=== PATIENT | male | born 1975 | race Caucasian/White ===

== ENCOUNTER 2019-02-23 08:06 | Emergency (ER) | payer OTHER ==
[2019-02-23] MEDS ORDERED: LIDOCAINE 5% TOPICAL PATCH TP ONE (08:55)
[2019-02-23] MEDS ORDERED: ORPHENADRINE CITRATE 30 MG/ML ML ONE (08:55)
== END 2019-02-23 09:24 | disposition home or self-care (01) ==
LOC: EDH 08:06
DX: M62.830 Muscle spasm of back (principal); M25.511 Pain in right shoulder
CPT/HCPCS: 96372; 99283; J2360

== ENCOUNTER 2019-04-08 08:03 | Emergency (ER) | payer OTHER ==
[2019-04-08] MEDS ORDERED: ASPIRIN 325 MG TABLET ONE (08:09)
[2019-04-08 08:29] LABS: BASOPHILS % (AUTO) 0.8 % (0.0-5.0); CREATININE 1.1 mg/dL (0.5-1.5); HEMATOCRIT 43.3 % (42-54); LYMPHOCYTES % (AUTO) 28.8 % (21.0-51.0); MEAN CORPUSCULAR HEMOGLOBIN 32.7 pg (27.0-33.0); MEAN CORPUSCULAR HGB CONC 35.2 g/dL (32.0-36.0); MONOCYTES % (AUTO) 6.3 % (3.0-13.0); NEUTROPHILS % (AUTO) 62.1 % (40.0-77.0); PLATELET COUNT (AUTO) 209 K/uL (130-400); POTASSIUM 4.6 mmol/L (3.5-5.1); RED BLOOD CELL COUNT(AUTO) 4.66 MIL/uL (4.50-6.20); RED CELL DISTRIBUTION WIDTH 12.7 % (11.0-15.5); WHITE BLOOD COUNT (AUTO) 6.1 K/uL (4.8-10.8)
[2019-04-08 08:35] LABS: ALBUMIN 4.2 g/dL (3.5-5.0); BILIRUBIN,TOTAL 0.3 mg/dL (0.2-1.0); TOTAL PROTEIN, SERUM 7.2 g/dL (6.0-8.3)
[2019-04-08 08:37] LABS: INR 0.91 (0.85-1.15); PROTHROMBIN TIME 9.6 SEC (9.6-11.6)
== END 2019-04-08 12:19 | disposition home or self-care (01) ==
LOC: EDH 08:03
DX: J18.8 Other pneumonia, unspecified organism (principal); I10 Essential (primary) hypertension; J45.909 Unspecified asthma, uncomplicated; Z72.0 Tobacco use
CPT/HCPCS: 36415; 71045; 80053; 82550; 84484; 85025; 85610; 85730; 93005

== ENCOUNTER 2019-08-05 06:48 | Day surgery (SDC) | payer OTHER ==
[2019-08-03 08:48] VITALS: BP 151/81
[2019-08-03 08:51] LABS: BASOPHILS % (AUTO) 0.7 % (0.0-5.0); EOSINOPHILS % (AUTO) 2.4 % (0.0-8.0); HEMATOCRIT 41.7 % (42-54); LYMPHOCYTES % (AUTO) 29.7 % (21.0-51.0); MEAN CORPUSCULAR HEMOGLOBIN 31.8 pg (27.0-33.0); MEAN CORPUSCULAR HGB CONC 35.5 g/dL (32.0-36.0); MEAN CORPUSCULAR VOLUME 89.5 fL (79-99); MONOCYTES % (AUTO) 5.4 % (3.0-13.0); NEUTROPHILS % (AUTO) 61.2 % (40.0-77.0); PLATELET COUNT (AUTO) 210 K/uL (130-400); RED BLOOD CELL COUNT(AUTO) 4.66 MIL/uL (4.50-6.20); RED CELL DISTRIBUTION WIDTH 11.7 % (11.0-15.5); WHITE BLOOD COUNT (AUTO) 5.4 K/uL (4.8-10.8)
[~2019-08-05] VITALS: Ht 186.7 cm; Wt 100.7 kg
[2019-08-05] VITALS (12 sets, daily range): BP systolic 130–163; BP diastolic 72–99
[~2019-08-05 06:48] MED LIST: ACET-66 PO; IBUP-1493 PO
[2019-08-05] MEDS: CEFAZOLIN SODIUM 1 GM VIAL IVP ONE ×2 (08:00→17:10)
[2019-08-05] MEDS ORDERED: LACTATED RINGERS 1000ML 1,000 ML IV ONE (12:18)
[2019-08-05] MEDS ORDERED: CEFAZOLIN SODIUM 1 GM VIAL ONE (12:18)
[2019-08-05] MEDS ORDERED: ROPIVACAINE 0.5% 5MG/ML 30ML IJ ONE (15:50)
[2019-08-05] MEDS ORDERED: PROPOFOL 10 MG/ML 20ML VIAL IV ONE (15:51)
[2019-08-05] MEDS ORDERED: ONDANSETRON HCL 4 MG/2 ML VIAL ONE (15:51)
[2019-08-05] MEDS ORDERED: MIDAZOLAM HCL 1 MG/ML 2ML VIAL ONE (15:51)
[2019-08-05] MEDS ORDERED: GLYCOPYRROLATE 1 MG/5 ML SYRINGE ONE (15:51)
[2019-08-05] MEDS ORDERED: DEXAMETHASONE SOD PHOSPHATE 10MG/ML 1ML VIAL ONE (15:51)
[2019-08-05] MEDS ORDERED: FENTANYL CITRATE PF 50 MCG/1 ML 2ML VIAL ONE (15:51)
[2019-08-05] MEDS ORDERED: ROCURONIUM 10MG/1ML SYR 10 MG/ML ML ONE (15:51)
[2019-08-05] MEDS ORDERED: LIDOCAINE PF 2% 5ML ABBOJECT ONE (15:51)
[2019-08-05] MEDS ORDERED: SUCCINYLCHOLINE 200MG/10ML SYR ONE (15:51)
[2019-08-05] MEDS ORDERED: NEOSTIGMINE 5MG/5ML SYR IV ONE (15:51)
[2019-08-05] MEDS ORDERED: EPINEPHRINE 1 MG/ML 30ML VIAL IJ ONE (16:14)
[2019-08-05] MEDS ORDERED: FENTANYL CITRATE PF 50 MCG/1 ML 5ML AMP IV ONE (17:31)
[2019-08-05] MEDS ORDERED: HYDR-4457 PO (19:20)
[2019-08-05] MEDS ORDERED: CEPH500B PO (19:20)
--- NOTE | 2019-08-05 20:36 | NUR ---
MANJINDER VILLATORO TO SEE PT REGARDING LEFT PUPIL 4MM AND RIGHT PUPIL 2MM. ALSO PT'S BP ELEVATED. PT SPOKE AND ASSESSED PT. GAVE PT'S INSTRUCTION TO FOLLOW UP WITH PRIMARY DOCTOR REGARDING ELEVATED BP. PUPILS ARE UNEQUAL DUE TO THE BLOCK. PUPILS WILL RETURN TO NORMAL SIZE. NO NEW ORDERS GIVEN TO RN. PT MAY BE DISCHARGED TO HOME. PT STABLE. REPORTS NO VISUAL PROBLEMS. PT AND TOLD TO REPORT TO ER IF VISUAL PROBLEMS PRESENT. Addendum: 08/05/19 at 2041 by MADDY JON RN RN Amended: Links added.
--- NOTE | 2019-08-05 21:00 | NUR ---
DISCHARGE PT DISCHARGED VIA WHEELCHAIR WITH . PT STABLE. NO COMPLAINTS MADE. RIGHT ARM REMAINS IN SLING, DRESSINGS TO RIGHT SHOULDER DRY AND INTACT, NO OOZING NOTED. PT STATES HE STILL FEELS NUMB TO LEFT ARM, RADIAL PULSES STRONG, CAPILLARY REFILLS BRISK, SKIN DRY. ZAK MO CRNA WAS HERE EARLIER TO CHECK UP PT, SPOKE TO PT AND HIS REGARDING UNEQUAL PUPIL SIZE AND ELEVATED BP AND GAVE THEM INSTRUCTIONS. BOTH VERBALIZED UNDERSTANDING. OKAY TO DISCHARGE HOME PER MANJINDER MO. DISCHARGE INSTRUCTIONS GIVEN TO AND PT, VERBALIZED UNDERSTANDING.
== END 2019-08-05 21:00 | disposition home or self-care (01) ==
LOC: DAH 06:48
PROVIDERS: ATTEND Orthopaedic Surgery
DX: M75.01 Adhesive capsulitis of right shoulder (principal); M25.611 Stiffness of right shoulder, not elsewhere classified; M65.811 Other synovitis and tenosynovitis, right shoulder; M75.21 Bicipital tendinitis, right shoulder; S43.491A Other sprain of right shoulder joint, initial encounter; X58.XXXA Exposure to other specified factors, initial encounter; Y93.89 Activity, other specified; Y92.89 Other specified places as the place of occurrence of the external cause; Y99.8 Other external cause status; G89.29 Other chronic pain; I10 Essential (primary) hypertension; E78.5 Hyperlipidemia, unspecified; K21.9 Gastro-esophageal reflux disease without esophagitis; E11.9 Type 2 diabetes mellitus without complications; J45.909 Unspecified asthma, uncomplicated; Z98.890 Other specified postprocedural states; Z79.899 Other long term (current) drug therapy
CPT/HCPCS: 29823; 29825; 36415; 64415; 76942; 80048; 82948; 85025; A4215; A4221; A4222; A4223; A4565; A4649 ×3; A4663; A4930; A6204; G0168; J0171; J0330; J0690; J1100; J2001; J2250; J2405; J2704; J2710; J2795; J3010 ×2; J3490; J7120 ×2

== ENCOUNTER 2023-04-28 10:02 | Emergency (ER) | payer OTHER ==
[~2023-04-28] VITALS: Ht 185.4 cm; Wt 97.5 kg
[~2023-04-28 10:02] MED LIST changes: +CEPH500B PO; +HYDR-4457 PO
[2023-04-28 10:35] LABS: BASOPHILS # (AUTO) 0.02 K/uL (0.00-0.20); BASOPHILS % (AUTO) 0.2 % (0.0-5.0); EOSINOPHILS # (AUTO) 0.16 K/uL (0.00-0.70); EOSINOPHILS % (AUTO) 1.7 % (0.0-8.0); IMMATURE GRANULOCYTE ABSOLUTE 0.04 K/uL (0-1); LYMPHOCYTES # (AUTO) 1.2 K/uL (1.0-4.8); LYMPHOCYTES % (AUTO) 13.2 % (21.0-51.0); MEAN CORPUSCULAR HEMOGLOBIN 31.8 pg (27.0-33.0); MEAN CORPUSCULAR HGB CONC 34.9 g/dL (32.0-36.0); MEAN CORPUSCULAR VOLUME 91.1 fL (79-99); MONOCYTES # (AUTO) 0.7 K/uL (0.1-1.0); MONOCYTES % (AUTO) 7.8 % (3.0-13.0); NEUTROPHILS # (AUTO) 7.1 K/uL (1.8-7.7); NEUTROPHILS % (AUTO) 76.7 % (40.0-77.0); PLATELET COUNT (AUTO) 181 K/uL (130-400); RED BLOOD CELL COUNT(AUTO) 4.28 MIL/uL (4.50-6.20); RED CELL DISTRIBUTION WIDTH 11.9 % (11.0-15.5); WHITE BLOOD COUNT (AUTO) 9.2 K/uL (4.8-10.8)
[2023-04-28 10:38] LABS: APPEARANCE,URINE CLEAR (CLEAR); BILIRUBIN,URINE NEGATIVE (NEGATIVE); COLOR,URINE YELLOW (YELLOW); GLUCOSE, URINE (UA) NEGATIVE (NEGATIVE); KETONES,URINE NEGATIVE (NEGATIVE); LEUKOCYTE ESTERASE ,URINE NEGATIVE Leu/uL (NEGATIVE); NITRATE,URINE NEGATIVE (NEGATIVE); OCCULT BLOOD,URINE NEGATIVE (NEGATIVE); PH,URINE 5.5 (5.0-8.0); PROTEIN,URINE 10 mg/dL (NEGATIVE); UROBILINOGEN,URINE 0.2 mg/dL (0.2-1.0)
[2023-04-28 10:40] LABS: ADD UA MICROSCOPIC YES
[2023-04-28 10:43] LABS: MUCUS,URINE RARE LPF (None Seen); RBC,URINE 0-1 /HPF (0-1); WBC,URINE 0-1 /HPF (0-1)
[2023-04-28 10:46] LABS: CREATININE 1.1 mg/dL (0.5-1.5); POTASSIUM 4.3 mmol/L (3.5-5.1)
[2023-04-28 10:50] LABS: ALBUMIN 3.6 g/dL (3.5-5.0); BILIRUBIN,TOTAL 0.6 mg/dL (0.2-1.0); TOTAL PROTEIN, SERUM 6.8 g/dL (6.0-8.3)
[2023-04-28] MEDS ORDERED: ONDANSETRON 4MG INJ IVP ONE (11:30)
[2023-04-28] MEDS ORDERED: MORPHINE 4 MG SYG IVP ONE (11:30)
[2023-04-28] MEDS ORDERED: LEVOFLOXACIN 500 MG/D5W 100 ML 100 ML IV SCH (13:00)
[2023-04-28 14:00] VITALS: BP 134/74; PULSE 69; RESP 18; O2SAT 100
[2023-04-28] MEDS ORDERED: METRONIDAZOLE 500MG/100ML BAG 100 ML IVPB SCH (14:00)
[2023-04-28] MEDS ORDERED: AMOX-426 PO (14:21)
[2023-04-28] MEDS ORDERED: POLY17PO4 PO (14:21)
== END 2023-04-28 15:45 | disposition home or self-care (01) ==
LOC: EDH 10:02
DX: K57.32 Diverticulitis of large intestine without perforation or abscess without bleeding (principal); E11.9 Type 2 diabetes mellitus without complications; I10 Essential (primary) hypertension; E78.00 Pure hypercholesterolemia, unspecified; K21.9 Gastro-esophageal reflux disease without esophagitis; Z79.899 Other long term (current) drug therapy; Z98.890 Other specified postprocedural states
CPT/HCPCS: 99285; 74176; 96365; 96375; 96367; 96366; 80053; 85025; 81001; 36415; J1956; J2405; J2270; J3490